=== PATIENT | female | born 1960 | race American Indian/Alaskan Native ===

== ENCOUNTER 2017-10-18 21:01 | Emergency (ER) | payer SELFPAY ==
[2017-10-18 21:31] VITALS: BP 164/87
--- NOTE | 2017-10-19 00:24 | Emergency Department Report ---
ED Rash HPI - HPI Chief Complaint: Skin Rash Stated Complaint: INSECT BITE Time Seen by Provider: 10/19/17 00:06 Duration: 2 Days Location: Head (left side of face ), Upper Extremities, Lower Extremities Suspected Cause: Insect Rash Symptoms: Yes Itching, Yes Blistering (left wrist), No Facial Swelling, No Tongue/Oral Swelling, No Breathing Difficulties, No Choking Sensation, No Wheezing/Dyspnea, No Peeling, No Fever, No Lightheaded, No Malaise, No Myalgias Severity: moderate Other History: This is a 56-year-old -[place] female presents with rash to face and bilateral upper extremities from insect bites 2 days ago. [facility] she and woke up the next morning they noticed swelling to face with multiple bite wounds to upper extremity. She saw a radiated bulk on the bed but thought it was something that flew in from a walked into the room. Patient reports rash is itchy and she noticed blistering to left wrist. She has been taking Benadryl for symptom control with no improvement of symptoms. Patient denies nausea vomiting, fever , difficulty breathing, tongue swelling, and drooling. ED Review of Systems ROS: Stated complaint: INSECT BITE Other details as noted in HPI Constitutional: denies: chills, fever Respiratory: denies: cough, shortness of breath, wheezing Cardiovascular: denies: chest pain, palpitations, syncope Gastrointestinal: denies: abdominal pain, nausea, vomiting, diarrhea Musculoskeletal: denies: back pain, joint swelling, arthralgia Skin: rash (rash to face and bilateral upper extremity). denies: lesions Neurological: denies: headache, weakness, numbness, paresthesias Psychiatric: denies: anxiety, depression ED Past Medical Hx - Past Medical History Previous Medical History?: Yes Hx Hypertension: Yes - Surgical History Past Surgical History?: Yes Hx Appendectomy: Yes Additional Surgical History: partial hysterectomy - Social History Smoking Status: Never Smoker Substance Use Type: None - Medications Home Medications: Home Medications Medication Instructions Recorded Confirmed Last Taken Type Cephalexin [Keflex] 500 mg PO Q6HR #40 capsule 11/15/15 Unknown Rx HYDROcodone/APAP 5-325 [Adell 1 each PO Q6HR PRN #15 tablet 11/15/15 Unknown Rx 5/325] Multiple Vitamins For Women 1 tab PO QAM 11/15/15 11/15/15 11/15/15 History Pantoprazole [Protonix] 40 mg PO QDAY #30 tablet 11/15/15 Unknown Rx Sulfamethoxazole/Trimethoprim 1 each PO BID 7 Days #14 tablet 10/19/17 Unknown Rx [Bactrim DS TAB] hydrOXYzine PAMOATE [Vistaril] 25 mg PO Q6HR PRN #20 capsule 10/19/17 Unknown Rx methylPREDNISolone [Medrol Dose 4 mg PO DAILY #1 pack 10/19/17 Unknown Rx Mahad] Rash Exam - Exam General: Vital signs noted. No distress. Alert and acting appropriately. HEENT: No Periorbital Edema, No Conjuctival Injection, No Chemosis, No Perioral Edema, No Tongue Edema, No Uvular Edema, No Compromised Airway, No Drooling Lungs: Yes Good Air Exchange (Normal Breath Sounds), No Wheezes, No Ronchi, No Stridor, No Cough, No Labored Respirations, No Retractions, No Use of Accessory Muscles, No Other Abnormal Lung Sounds Heart: Yes Regular, No Murmur Skin: Yes Maculopapular Rash (maculopapular rash to left side and bilateral upper extremity of face erythematous, blanchable, x3 3-4 mm papules on left anterior wrist, surrounding cellulitis, mild swelling), No Urticarial Rash, No Morbilliform rash, No Bulla(e), No Excoriations, No Weeping, No Tenderness, No Erythema, No Edema, No Encrustations, No Other Other: Positive: Abdomen Normal, Neurologic Normal, Musculoskeletal Normal ED Course Vital Signs 10/18/17 21:27 Temperature 97.8 F Pulse Rate 82 Respiratory 17 Rate Blood Pressure 164/87 O2 Sat by Pulse 99 Oximetry ED Medical Decision Making - Medical Decision Making This is a 56-year-old -[place] female who presents with rash to left side of face and bilateral upper extremities. Patient was examined by me. No distress noted. Vitals stable. Patient is drinking fluids w/o distress in ER. Physical assessment susceptible of allergic contact dermatitis and impetigo. Given dexamethasone 8 mg IM, Benadryl 25 mg by mouth once in the ER. Start Vistaril, Medrol dose mahad, and bactrim. Discussed plan with patient mother and agreed to plan. Critical care attestation.: If time is entered above; I have spent that time in minutes in the direct care of this critically ill patient, excluding procedure time. ED Disposition Clinical Impression: Impetigo Bed bug bite Qualifiers: Encounter type: initial encounter Qualified Code(s): W57.XXXA - Bitten or stung by nonvenomous insect and other nonvenomous arthropods, initial encounter Allergic contact dermatitis Qualifiers: Contact dermatitis trigger: other trigger Qualified Code(s): L23.89 - Allergic contact dermatitis due to other agents Disposition: DC- TO HOME OR SELFCARE Is pt being admited?: No Does the pt Need Aspirin: No Condition: Stable Instructions: Contact Dermatitis (ED), Insect Bite or Sting (ED) Additional Instructions: Wash area daily with soap and water. Complete full course of antibiotics and steroids. Take Vistaril or Benadryl to control itching. Follow up with primary care provider in 24-72 hours. Prescriptions: hydrOXYzine PAMOATE [Vistaril] 25 mg PO Q6HR PRN #20 capsule PRN Reason: Itching methylPREDNISolone [Medrol Dose Mahad] 4 mg PO DAILY #1 pack Sulfamethoxazole/Trimethoprim [Bactrim DS TAB] 1 each PO BID 7 Days #14 tablet Referrals: [facility] [Outside] - 3-5 Days [facility] [Outside] - 3-5 Days [facility] [Outside] - 3-5 Days Time of Disposition: 00:34 Print Language: MAORI
[2017-10-19] MEDS ORDERED: BENADRYL PO ONE (00:35)
[2017-10-19] MEDS ORDERED: DECADRON IM ONE (00:35)
== END 2017-10-19 00:55 | disposition home or self-care (01) ==
LOC: ED 21:01
DX: L01.09 Other impetigo (principal); L23.9 Allergic contact dermatitis, unspecified cause; W57.XXXA Bitten or stung by nonvenomous insect and other nonvenomous arthropods, initial encounter; I10 Essential (primary) hypertension; Z90.711 Acquired absence of uterus with remaining cervical stump
CPT/HCPCS: 96372; 99282; J1100